=== PATIENT | male | born 1985 | race African-American/Black ===

== ENCOUNTER 2020-09-11 02:27 | Emergency (ER) | payer SELFPAY ==
[~2020-09-11] VITALS: Ht 185.4 cm; Wt 90.0 kg
[2020-09-11] MEDS ORDERED: MORPHINE SULFATE 4 MG/ML CPJ (NOT FOR IM USE) IV STA (02:41)
[2020-09-11] MEDS ORDERED: ONDANSETRON HCL 4MG/2ML INJ IV STA (02:41)
[2020-09-11] MEDS ORDERED: TETANUS, DIPHTHERIA, PERTUSSIS VAC/PF 0.5ML (>7YR OLD) IM ONE (02:45)
[2020-09-11] MEDS ORDERED: BACITRACIN ZINC OINT UDPKT TOP ONE (02:45)
[2020-09-11] MEDS ORDERED: CEFAZOLIN 1000MG PREMIX 50 ML IV ONE (02:45)
[2020-09-11] MEDS ORDERED: HYDROCODONE/ACETAMINOPHEN 10/325MG TABLET PO ONE (03:45)
[2020-09-11] MEDS ORDERED: CEPH500C2 MT (04:02)
[2020-09-11] MEDS ORDERED: IBUP-2029 MT (04:02)
[2020-09-11 04:15] VITALS: BP 145/73
== END 2020-09-11 04:16 | disposition home or self-care (01) ==
LOC: ER 02:27
DX: S81.842A Puncture wound with foreign body, left lower leg, initial encounter (principal); X95.9XXA Assault by unspecified firearm discharge, initial encounter; Y93.89 Activity, other specified; R03.0 Elevated blood-pressure reading, without diagnosis of hypertension; Y92.480 Sidewalk as the place of occurrence of the external cause; Z23 Encounter for immunization
CPT/HCPCS: 73590; 90471; 90715; 96365; 96375; 99284; J0690; J2270; J2405